=== PATIENT | female | born 1955 | race African-American/Black ===

== ENCOUNTER 2017-04-26 09:23 | Emergency (ER) | payer OTHER ==
[~2017-04-26] VITALS: Ht 180.3 cm; Wt 90.0 kg
[~2017-04-26 09:23] MED LIST: CYCL-36 PO; LORC10TA PO; NAPR550 PO; Z.0.NO CURRENT MEDS
[2017-04-26 09:25] VITALS: BP 143/79; PULSE 84; RESP 20; TEMP 98.2; O2SAT 98
--- NOTE | 2017-04-26 09:48 | PD ---
HPI Chief Complaint: Back/ Neck Pain or Injury Time Seen by Provider: 09:45 Travel History International Travel<30 days: No Contact w/Intl Traveler<30days: No Traveled to known affect area: No History of Present Illness HPI 61-year-old female presents to emergency Department with complaint of right lower back pain 3 days. Had left sciatic nerve ablation of 3, 4, 5, 6-[address] Romero in [place]. She was also treated for urinary tract infection 2 weeks ago. Denies encopresis, incontinence, saddle anesthesias. Denies IV drug use, cancer. Denies paresthesias, loss of sensation, decreased range motion, decreased strength to bilateral lower extremities. Denies fever. Reports nausea without vomiting. Pain radiates around to right abdomen. Denies change in stool. Reports urinary frequency. Denies dysuria, urinary hematuria. Has been taking Percocet and ibuprofen for symptom management; has not taken her medications this morning. Denies history of kidney stones. Surgical history of appendectomy, cholecystectomy, complete hysterectomy. History of diabetes and hypertension. Allergies to Cipro, hydrocortisone, iodine, Omnipaque, morphine, penicillin. Has no other medical complaints. No other modifying factors or associated signs and symptoms. PFSH Past Medical History Blood Disorders: No Cancer: No Cardiovascular Problems: Yes (htn) Chemotherapy: No Diabetes: Yes (metformin) Patient Takes Glucophage: Yes Diminished Hearing: No Diverticulitis: Yes Endocrine: No Gastrointestinal Disorders: Yes GERD: Yes Genitourinary: No Hepatitis: No Hiatal Hernia: No Immune Disorder: No Musculoskeletal: Yes (CARPAL TUNNEL RT HAND) Neurologic: No Psychiatric: No Reproductive: No Respiratory: No Radiation Therapy: No Ulcer: No Influenza Vaccination: Yes Past Surgical History Abdominal Surgery: No AICD: No Appendectomy: Yes Arteriovenous Shunt: No Cardiac Surgery: No Cholecystectomy: Yes Ear Surgery: No Endocrine Surgery: No Eye Surgery: No Genitourinary Surgery: No Gynecologic Surgery: Yes Hysterectomy: Yes Insulin Pump: No Joint Replacement: No Oral Surgery: No Pacemaker: No Thoracic Surgery: No Other Surgery: Yes Social History Alcohol Use: Yes (OCCASSIONALLY) Tobacco Use: No Substance Use: No Allergies-Medications (Allergen,Severity, Reaction): Coded Allergies: Iodine (Verified Allergy, Severe, SEVERE HIVES, 04/26/17) Cipro (Verified Allergy, Intermediate, hives, 04/26/17) Hydrocortisone (Verified Allergy, Intermediate, hives, 04/26/17) Iohexol (OMNIPAQUE) (Unverified Allergy, Unknown, SEVERE HIVES / NEEDS PREMED, 04/26/17) Morphine (Verified Adverse Reaction, Severe, HEADACHES, 04/26/17) Penicillin (Verified Adverse Reaction, Intermediate, HOT FLASHES, 04/26/17) Reported Meds & Prescriptions Reported Meds & Active Scripts Active Valium (Diazepam) 5 Mg Tab 5 Mg PO BID PRN Percocet (Oxycodone-Acetaminophen) 5-325 mg Tab 1 Tab PO Q4H PRN Reported Lisinopril 10 Mg Tab 10 Mg PO DAILY Ibuprofen 800 Mg Tab 800 Mg PO Q8H PRN Percocet (Oxycodone-Acetaminophen) 5-325 mg Tab 1 Tab PO Q4H PRN Metformin (Metformin HCl) 500 Mg Tab 500 Mg PO DAILY With a meal Review of Systems Except as stated in HPI: all other systems reviewed are Neg Physical Exam Narrative GENERAL: Well-nourished, well-developed female patient, in no acute distress; afebrile, nontoxic-appearing SKIN: Warm and dry. HEAD: Atraumatic. Normocephalic. EYES: Pupils equal and round. No scleral icterus. No injection or drainage. ENT: Mucosa pink and moist. Airway patent. NECK: Trachea midline. CARDIOVASCULAR: Regular rate and rhythm. No murmur appreciated.. RESPIRATORY: No accessory muscle use. Breath sounds clear and equal bilaterally. No retractions or tachypnea. GASTROINTESTINAL: Abdomen soft, tenderness to right lower quadrant, nondistended. Positive bowel sounds. No hepato-splenomegaly, or palpable masses. No guarding. MUSCULOSKELETAL: Bilateral lower extremities supple and non-tense with 2+ pedal pulses and sensory intact; with full range of motion and 5/5 strength. 2 + DTRs bilaterally. Active dorsiflexion and extension of bilateral feet. Ambulatory in room with normal gait. Sitting up in bed at 90. No obvious deformities. No clubbing. No cyanosis. No edema. BACK: Right sided CVA tenderness. No midline point tenderness on palpation of the lumbar spine. No Tenderness on palpation of iliosacral area. No obvious deformities. NEUROLOGICAL: Awake and alert. Oriented 3. No obvious cranial nerve deficits. Motor grossly within normal limits. Normal speech. Moves all extremities. 5/5 strength to all extremities. Sensory intact. PSYCHIATRIC: Appropriate mood and affect; insight and judgment normal. Data Data Last Documented VS Vital Signs Date Time Temp Pulse Resp B/P Pulse Ox O2 Delivery O2 Flow Rate FiO2 04/26/17 09:25 98.2 84 20 143/79 98 Room Air Orders Urinalysis - C+S If Indicated (04/26/17 09:44) Complete Blood Count With Diff (04/26/17 09:48) Comprehensive Metabolic Panel (04/26/17 09:48) Lipase (04/26/17 09:48) Ct Abd/Pel W/O Iv Contrast (04/26/17 09:48) Iv Access Insert/Monitor (04/26/17 09:48) Sodium Chloride 0.9% Flush (Ns Flush) (04/26/17 10:00) Ct Lumb Spine W/O Contrast (04/26/17 ) Oxycodone-Acetamin 5-325 Mg (Percocet (04/26/17 10:00) Diazepam (Valium) (04/26/17 10:30) Ketorolac Inj (Toradol Inj) (04/26/17 11:30) Labs Laboratory Tests Test 04/26/17 10:02 White Blood Count 5.2 TH/MM3 Red Blood Count 5.20 MIL/MM3 Hemoglobin 13.7 GM/DL Hematocrit 43.6 % Mean Corpuscular Volume 83.8 FL Mean Corpuscular Hemoglobin 26.3 PG Mean Corpuscular Hemoglobin 31.4 % Concent Red Cell Distribution Width 12.7 % Platelet Count 136 TH/MM3 Mean Platelet Volume 10.9 FL Neutrophils (%) (Auto) 52.4 % Lymphocytes (%) (Auto) 35.9 % Monocytes (%) (Auto) 8.4 % Eosinophils (%) (Auto) 2.7 % Basophils (%) (Auto) 0.6 % Neutrophils # (Auto) 2.7 TH/MM3 Lymphocytes # (Auto) 1.9 TH/MM3 Monocytes # (Auto) 0.4 TH/MM3 Eosinophils # (Auto) 0.1 TH/MM3 Basophils # (Auto) 0.0 TH/MM3 CBC Comment DIFF FINAL Differential Comment Urine Color YELLOW Urine Turbidity CLEAR Urine pH 5.0 Urine Specific [place] 1.020 Urine Protein NEG mg/dL Urine Glucose (UA) NEG mg/dL Urine Ketones NEG mg/dL Urine Occult Blood NEG Urine Nitrite NEG Urine Bilirubin NEG Urine Urobilinogen LESS THAN 2.0 MG/DL Urine Leukocyte Esterase SMALL Urine RBC 1 /hpf Urine WBC 1 /hpf Urine Squamous Epithelial 1 /hpf Cells Urine Mucus FEW /lpf Microscopic Urinalysis Comment CULT NOT INDICATED Sodium Level 138 MEQ/L Potassium Level 4.0 MEQ/L Chloride Level 104 MEQ/L Carbon Dioxide Level 26.9 MEQ/L Anion Gap 7 MEQ/L Blood Urea Nitrogen 17 MG/DL Creatinine 0.69 MG/DL Estimat Glomerular Filtration 105 ML/MIN Rate Random Glucose 117 MG/DL Calcium Level 9.6 MG/DL Total Bilirubin 0.5 MG/DL Aspartate Amino Transf 18 U/L (AST/SGOT) Alanine Aminotransferase 33 U/L (ALT/SGPT) Alkaline Phosphatase 51 U/L Total Protein 7.5 GM/DL Albumin 3.8 GM/DL Lipase 186 U/L MDM Medical Decision Making Medical Screen Exam Complete: Yes Emergency Medical Condition: Yes Medical Record Reviewed: Yes Differential Diagnosis Nephrolithiasis, pyelonephritis, low back pain, muscle spasm Narrative Course 61-year-old female with right-sided low back pain that radiates to the abdominal area. History for urinary tract infection 2 weeks ago. Also had left sciatic nerve ablation [address] Romero in [place]. Denies encopresis, incontinence, saddle anesthesias. Denies IV drug use or cancer. Denies fever, vomiting. Patient is ambulatory in the room with normal gait. No midline point tenderness on percussion of the lumbar spine. Patient is afebrile and nontoxic-appearing. I discussed the patient with Dr. Schroeder, my attending physician, and she agrees with my plan of care and recommend CT lumbar spine. CBC, CMP, lipase, urinalysis, CT abdomen, CT lumbar spine ordered. Dr. Schroeder ordered Percocet for pain. 1107: CBC, CMP unremarkable. Lipase 186. Urinalysis without signs of infection. 1226: Last 24 hours Impressions Abdomen/Pelvis CT 04/26/17 0948 Signed Impressions: Service Date/Time: Wednesday, April 26, 2017 10:08 - CONCLUSION: Scattered diverticula and degenerative changes of the left hip, otherwise unremarkable. Manjula Magana MD Lumbar Spine CT 04/26/17 0000 Signed Impressions: Service Date/Time: Wednesday, April 26, 2017 10:08 - CONCLUSION: 1. Facet arthritis throughout the lower lumbar spine. No lateralizing abnormality is identified. Jonathan Day MD Percocet and Valium prescribed for home. Instructed patient to follow up with primary care provider. Patient verbalizes understanding and agreement with treatment plan. Patient is medically cleared and stable for discharge. Discussed reasons to return to the emergency department. Patient agrees with treatment plan. The patients vital signs are stable and the patient is stable for outpatient follow-up and treatment. Patient discharged home, stable and in no acute distress. Diagnosis Primary Impression: Acute right-sided low back pain Qualified Code: M54.5 - Acute right-sided low back pain, with sciatica presence unspecified Referrals: Primary Care Physician Patient Instructions: Acute Low Back Pain (ED), General Instructions, Sciatica (ED) Additional Instructions: Tylenol or ibuprofen as directed and as needed for pain Valium as prescribed and as needed for muscle spasms Heating pad and/or ice to affected area to reduce pain Avoid aggravating activities; increase activity as tolerated Follow-up with primary care provider Return to emergency department immediately with worsening of symptoms Med/Other Pt SpecificInfo: Prescription(s) given Scripts Diazepam (Valium)5 Mg Tab5 Mg PO BID PRN (MUSCLE SPASM) #10 TAB Ref 0 Prov:Maty Schroeder DO 04/26/17 Oxycodone-Acetaminophen (Percocet)5-325 mg Tab1 Tab PO Q4H PRN (PAIN) #10 TAB Ref 0 Prov:Maty Schroeder DO 04/26/17 Disposition: 01 DISCHARGE HOME Condition: Stable Claire Ward Apr 26, 2017 09:48
[2017-04-26] MEDS ORDERED: PERC5TAB12 PO ×2 (09:50→11:22)
[2017-04-26] MEDS ORDERED: LISI10TA3 PO (09:50)
[2017-04-26] MEDS ORDERED: METF500T PO (09:50)
[2017-04-26] MEDS ORDERED: IBUP800T23 PO (09:50)
[2017-04-26] MEDS ORDERED: oxyCODONE/ACETAMINOPHEN 5 MG/325 MG TAB PO ONE (10:00)
[2017-04-26] MEDS ORDERED: SODIUM CHLORIDE 0.9% FLUSH 10 ML FLUSH IV FLUSH PRN (10:00)
[2017-04-26 10:26] LABS: AUTOMATED NEUTROPHIL # 2.7 TH/MM3 (1.8-7.7); BASOPHIL % 0.6 % (0.0-2.0); EOSINOPHIL # 0.1 TH/MM3 (0-0.4); EOSINOPHIL % 2.7 % (0.0-4.0); HEMATOCRIT 43.6 % (35.0-46.0); HEMO FLAGS DIFF FINAL; LYMPH % 35.9 % (9.0-44.0); LYMPHOCYTE # 1.9 TH/MM3 (1.0-4.8); MEAN CELL VOLUME 83.8 FL (80.0-100.0); MEAN CORPUSCULAR HEMOGLOBIN 26.3 PG (27.0-34.0); MEAN CORPUSCULAR HGB CONC 31.4 % (32.0-36.0); MONO % 8.4 % (0.0-8.0); NEUT % 52.4 % (16.0-70.0); PLATELET COUNT 136 TH/MM3 (150-450); RED CELL DISTRIBUTION WIDTH 12.7 % (11.6-17.2); WHITE BLOOD COUNT 5.2 TH/MM3 (4.0-11.0)
[2017-04-26 10:27] LABS: BLOOD, URINE NEG (NEG); COMMENT (UR) CULT NOT INDICATED; CULTURE IF INDICATED CULT NOT INDICATED; GLUCOSE,URINE NEG (NEG); KETONE, URINE NEG (NEG); MUCUS URINE FEW /lpf (OCC); NITRITE,URINE NEG (NEG); SQUAMOUS EPITHELIAL CELL URINE 1 /hpf (0-5); URINE COLOR YELLOW (YELLW/STRAW)
[2017-04-26] MEDS ORDERED: DIAZEPAM 5 MG TAB PO ONE (10:30)
--- NOTE | 2017-04-26 10:36 | RADRPT ---
EXAM DATE/TIME: 04/26/2017 10:08 [facility] COMPARISON: No previous studies available for comparison. INDICATIONS : Spasms right back, post OP ORAL CONTRAST: No oral contrast ingested. RADIATION DOSE: 15.89 CTDIvol (mGy) MEDICAL HISTORY : Cardiovascular disease. Hypertension. Diabetes SURGICAL HISTORY : Appendectomy. Diverticulitis ENCOUNTER: Initial ACUITY: 1 day PAIN SCALE: 7/10 LOCATION: Right lower back. TECHNIQUE: Volumetric scanning of the abdomen and pelvis was performed. Using automated exposure control and adjustment of the mA and/or kV according to patient size, radiation dose was kept as low as reasonably achievable to obtain optimal diagnostic quality images. DICOM format image data is av ailable electronically for review and comparison. FINDINGS: CT Abdomen: The liver, spleen, pancreas, kidneys, adrenals are unremarkable. There is no evidence for any appreciable pathological adenopathy, free fluid, or bowel obstruction. There is evidence for earl or cholecystectomy. There is no evidence for any stones in the kidneys or the course of the ureters on either side. There is no hydronephrosis. CT pelvis: There is no evidence for mass, abscess formation, or any significant adenopathy within the pelvis. There are scattered diverticuli mainly in the sigmoid colon without definite signs of divert iculitis. Degenerative geode is present in the left acetabulum. CONCLUSION: Scattered diverticula and degenerative changes of the left hip, otherwise unremarkabl e. K. Peter Magana MD on April 26, 2017 at 10:19 Board Certified Radiologist. This report was verified electronically.
[2017-04-26 10:43] LABS: ANION GAP 7 MEQ/L (5-15); AST (GOT) 18 U/L (15-37); BICARBONATE 26.9 MEQ/L (21.0-32.0); BLOOD UREA NITROGEN 17 MG/DL (7-18); CHLORIDE 104 MEQ/L (98-107); GLOMERULAR FILTRATION RATE 105 ML/MIN (>89); SODIUM (NA) 138 MEQ/L (136-145)
[2017-04-26 10:44] LABS: ALT (GPT) 33 U/L (10-53)
[2017-04-26 10:46] LABS: ALKALINE PHOSPHATASE 51 U/L (45-117); TOTAL BILIRUBIN ADULT 0.5 MG/DL (0.2-1.0)
[2017-04-26] MEDS ORDERED: DIAZ5 PO (11:22)
[2017-04-26] MEDS ORDERED: KETOROLAC TROMETHAMINE 30 MG/ML (IVP) VIAL IV PUSH ONE (11:30)
--- NOTE | 2017-04-26 11:51 | RADRPT ---
EXAM DATE/TIME: 04/26/2017 10:08 [facility] COMPARISON: No previous studies available for comparison. INDICATIONS : Spasams right back post OP RADIATION DOSE: 15.89 CTDIvol (mGy) ; Reconstructed from previous dataset MEDICAL HISTORY : Cardiovascular disease. Hypertension. Diabetes SURGICAL HISTORY : Appendectomy. Cholecystectomy.Hysterectomy. ENCOUNTER: Initial ACUITY: 1 day PAIN SCALE: 6/10 LOCATION: Right lower back TECHNIQUE: Volumetric scanning of the lumbar spine was performed. Multiplanar reconstructions in the sagittal, coronal and oblique axial planes were performed. Using automated exposure control and adjustment of the mA and/or kV according to patient size, radiation dose was kept as low as reasonably achievable t o obtain optimal diagnostic quality images. DICOM format image data is available electronically for review and comparison. FINDINGS: VERTEBRAE: Normal vertebral body height. ALIGNMENT: No evidence of subluxation. T12-L1: The thecal sac has a normal diameter. No evidence of disc bulge or protrusion. The neural foramina are patent bilaterally. L1-L2: The thecal sac has a normal diameter. No evidence of disc bulge or protrusion. The neural foramina are patent bilaterally. L2-L3: The thecal sac has a normal diameter. No evidence of disc bulge or protrusion. The neural foramina are patent bilaterally. L3-L4: There is a small broad-based disc bulge. The thecal space and foramina are adequate. There is advance d facet arthritis on the left. There is mild facet arthritis on the right. L4-L5: There is a small broad-based disc bulge. The thecal space and foramina are adequate. There is moderat e facet arthritis bilaterally. L5-S1: The thecal space and foramina appear adequate. There is moderate facet arthritis bilaterally. CONCLUSION: 1. Facet arthritis throughout the lower lumbar spine. No lateralizing abnormality is identified. Jonathan Day MD on April 26, 2017 at 11:44 Board Certified Radiologist. This report was verified electronically.
== END 2017-04-26 12:41 | disposition home or self-care (01) ==
LOC: NEPD 09:23
DX: M54.42 Lumbago with sciatica, left side (principal); I10 Essential (primary) hypertension; E11.9 Type 2 diabetes mellitus without complications; K21.9 Gastro-esophageal reflux disease without esophagitis; Z79.899 Other long term (current) drug therapy
CPT/HCPCS: 72131; 74176; 80053; 81001; 83690; 85025; 96374; 99285; J1885